=== PATIENT | male | born 1940 | race Caucasian/White ===

== ENCOUNTER → 2017-12-25 | Outpatient (CLI) | payer MEDICARE, BC ==
[2015-02-24 23:14] VITALS: BP 120/51
[~2017-12-25] MED LIST: ASPI-482 PO; CHOL100013 PO; DENO60DI SQ; LISI2.5T PO; METF500T4 PO; METO25TA2 PO; NITR0.4T22 SL; OMEG500C PO; TADA5TAB PO
[2017-12-25 10:08] LABS: ALBUMIN 3.7 g/dL (3.4-5.0); CALCIUM 9.4 mg/dL (8.5-10.1); CREATININE 0.8 mg/dL (0.7-1.3); GFR 93.5; TOTAL PROTEIN 7.3 g/dL (6.4-8.2)
[2017-12-25 10:09] LABS: MAGNESIUM 1.5 mg/dL (1.8-2.4); POTASSIUM 4.3 mmol/L (3.5-5.1); TOTAL BILIRUBIN 0.4 mg/dL (0.2-1.0)
== END | disposition home or self-care (01) ==
LOC: LAB 09:08
PROVIDERS: ATTEND Nurse Practitioner
DX: E78.5 Hyperlipidemia, unspecified (principal)
CPT/HCPCS: 36415; 80053; 80061; 83735

== ENCOUNTER → 2017-12-29 | Outpatient (CLI) | payer MEDICARE, BC ==
[2015-02-24 23:14] VITALS: BP 120/51
== END | disposition home or self-care (01) ==
LOC: SURG 09:48
PROVIDERS: ATTEND Anesthesiology Pain Medicine
DX: M47.816 Spondylosis without myelopathy or radiculopathy, lumbar region (principal); M51.37 Other intervertebral disc degeneration, lumbosacral region; M96.1 Postlaminectomy syndrome, not elsewhere classified; J44.9 Chronic obstructive pulmonary disease, unspecified; I50.9 Heart failure, unspecified; Z79.01 Long term (current) use of anticoagulants
CPT/HCPCS: 99214

== ENCOUNTER → 2018-01-25 | Day surgery (SDC) | payer MEDICARE, BC ==
[2015-02-24 23:14] VITALS: BP 120/51
[~2018-01-25] MED LIST changes: +BUPIVACAINE MPF 0.5% 30 ML VIAL. ONE; +LIDOCAINE 1% PF 30 ML VIAL. ONE; +methylPREDNISolone ACETATE 80 MG/ML VIAL. ONE
== END | disposition home or self-care (01) ==
LOC: SURG 09:30 → EDSTATUS 10:00
PROVIDERS: ATTEND Anesthesiology Pain Medicine
DX: M47.816 Spondylosis without myelopathy or radiculopathy, lumbar region (principal); J44.9 Chronic obstructive pulmonary disease, unspecified; Z95.0 Presence of cardiac pacemaker; I50.9 Heart failure, unspecified
CPT/HCPCS: 64493; 64494; 64495; J1040; J2001; J3490

== ENCOUNTER → 2018-05-02 | Outpatient (CLI) | payer MEDICARE, BC ==
[2015-02-24 23:14] VITALS: BP 120/51
[~2018-05-02] MED LIST changes: -BUPIVACAINE MPF 0.5% 30 ML VIAL. ONE; -LIDOCAINE 1% PF 30 ML VIAL. ONE; -METF500T4 PO; +METF500T5 PO; -methylPREDNISolone ACETATE 80 MG/ML VIAL. ONE
--- NOTE | 2018-05-02 13:41 | RAD ---
INDICATION: Dyspnea on exertion. TECHNIQUE: Two-view chest radiograph was obtained. Comparison study is from October 28, 2016. FINDINGS: There is cardiomegaly. There is no definite heart failure. Pacemaker is noted, leads similarly positioned. 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 There is a small to medium right pleural effusion which is new. There is no airspace disease. There are degenerative changes in the spine. There is a treated compression fracture in the lower thoracic spine. There are clips in the upper abdomen. IMPRESSION: 1. Small to medium-sized right pleural effusion, new from prior. 2. Cardiomegaly. Electronically signed by: Kb Gannon MD (05/02/2018 1:37 PM) [facility]
[2018-05-02 13:47] LABS: BASO # 0.1 x10^3/uL (0.0-0.2); BASO % 1 % (0-3); EOS # 0.2 x10^3/uL (0.0-0.7); EOS % 2 % (0-3); HEMATOCRIT 44.4 % (39.0-53.0); HEMOGLOBIN 14.4 g/dL (13.0-17.5); LYMPH # 2.6 x10^3/uL (1.0-4.8); LYMPH % 41 % (24-48); MEAN CORPUSCULAR HEMOGLOBIN 30 pg (25-35); MEAN CORPUSCULAR HGB CONC 33 g/dL (31-37); MEAN CORPUSCULAR VOLUME 93 fL (79-100); MONO # 0.5 x10^3/uL (0.0-1.1); MONO % 8 % (0-9); NEUT % 48 % (31-73); PLATELET COUNT 175 x10^3/uL (140-400); RED BLOOD COUNT 4.76 x10^6/uL (4.30-5.70); RED CELL DISTRIBUTION WIDTH 15.9 % (11.5-14.5); WHITE BLOOD COUNT 6.3 x10^3/uL (4.0-11.0)
[2018-05-02 14:00] LABS: CALCIUM 9.8 mg/dL (8.5-10.1); GFR 72.1; POTASSIUM 4.5 mmol/L (3.5-5.1)
== END | disposition home or self-care (01) ==
LOC: RAD 12:28
PROVIDERS: ATTEND Nurse Practitioner
DX: J90 Pleural effusion, not elsewhere classified (principal); I70.0 Atherosclerosis of aorta; E11.9 Type 2 diabetes mellitus without complications; E78.5 Hyperlipidemia, unspecified; E78.00 Pure hypercholesterolemia, unspecified; J44.9 Chronic obstructive pulmonary disease, unspecified; I11.0 Hypertensive heart disease with heart failure; I50.9 Heart failure, unspecified
CPT/HCPCS: 36415; 71046; 80048; 83880; 85025

== ENCOUNTER → 2018-06-04 | Outpatient (CLI) | payer MEDICARE, BC ==
[2015-02-24 23:14] VITALS: BP 120/51
--- NOTE | 2018-06-04 16:41 | RAD ---
EXAM: Chest, 2 views. HISTORY: Congestive heart failure. COMPARISON: 05/02/2018 FINDINGS: Frontal and lateral views of the chest are obtained. There has been slight interval increase in a moderate right pleural effusion and diffuse lower lobe and middle lobe predominant right lung infiltrate. There is stable enlargement of the cardiac silhouette. There is a cardiac pacemaker defibrillator unchanged in position. There is no pneumothorax. IMPRESSION: 1. Slight interval increase in a moderate right pleural effusion and right middle and lower lobe predominant infiltrate. 2. Stable enlargement of the cardiac silhouette. Electronically signed by: Chelsi Quezada MD (06/04/2018 4:37 PM) [facility]
== END | disposition home or self-care (01) ==
LOC: DXRAD 15:07
PROVIDERS: ATTEND Nurse Practitioner
DX: I11.0 Hypertensive heart disease with heart failure (principal); I50.9 Heart failure, unspecified; J90 Pleural effusion, not elsewhere classified; E11.9 Type 2 diabetes mellitus without complications; J44.9 Chronic obstructive pulmonary disease, unspecified; I25.10 Atherosclerotic heart disease of native coronary artery without angina pectoris; E78.5 Hyperlipidemia, unspecified; E78.00 Pure hypercholesterolemia, unspecified; R91.8 Other nonspecific abnormal finding of lung field; Z95.0 Presence of cardiac pacemaker
CPT/HCPCS: 71046